=== PATIENT | female | born 1965 | race Caucasian/White ===

== ENCOUNTER 2023-11-22 15:01 | Outpatient (RCR) | payer MEDICAID, SELFPAY ==
--- NOTE | 2023-11-23 10:58 | HP.OTEVAL_ITS ---
Patient's Visit Information Visit Information Visit Information: KANCHAN VACA is a 57 year old F, referred to Occupational Therapy by S[facility], with a diagnosis of LE lymphedema. Date of Evaluation: 11/22/23 Occupational Therapist: Jazzmine Cotton, [place], CHT Subjective Subjective: This 57 year old female was seen for OT eval with dx of LE lymphedema- pt states she has struggled with LE swelling on and off for awhile. Pt states about two weeks ago she had swelling and painful- pt states she called the drMerced and put her back on the water pill. This did make a big difference in her legs. Pt states she has always had swelling but last year swelling has increased. pt states does not work but still mtg. her home. pt states she does not notice a change in her limb size when she gets up in the mornings. More swollen by the evening. pt states she thinks her compression socks are a 20-30mmHg. but bought them off of [employer], and states they are pretty old. PT would like to know what more she can do to mtg. her LE swelling. Lymphedema (Circumferential Measure) Mid-foot: right 23.cm left 23.5cm Ankle: right 25cm left 26cm Lower calf: right 30cm left 30cm Largest calf: right 44cm left 45cm Below knee: right 38cm left 38cm Lower Limb Functional Index Lower Extremity Functional Score: 30 Goals Goal: Patient will demonstrate a 20% reduction in edema by discharge: Yes Goal: Patient will demonstrate adequate knowledge of self-massage by the end of the second week.: Yes Goal: Patient will demonstrate adequate knowledge of skin care and precautions by the end of the first week.: Yes Goal: Patient will demonstrate adequate knowledge of therapeutic exercises by discharge.: Yes Goal: Patient will select an appropriate compression garment and demonstrate adequate knowledge of correct donning technique, care and wearing schedule by discharge.: Yes Goal: Patient will voice understanding of need to replace compression garment every four to six months by discharge.: Yes Rehabilitation General Assessment: Pt demo with bilateral LE swelling that with conservative methods of elevation has not been able to mtg. the swelling. Pt demo need for skilled OT services 2-4 visits to ensure pts understanding of life long mtg of Lymphedema, use of compression socks 20-30mmHg. as well as beneficial exercises and skin care. Today therapist ed. pt on need of compression socks daily, lymph stimulation exercises as well as skin care and precautions. pt demo understanding and agree to POC. Pt would like order for compression socks but states she will contact therapist where to send order ( DME provider closer to h er home) Rehabilitation Potential: Questionable Anticipated Interventions Anticipated Interventions: Education re assistive Equipment, Education re Diagnosis, Education re Life-long lymphedema Management, Education re Skin Care and Precautions, Education re Self Massage Techniques, Education re Correct Donning Tech,Care&Wearing Sched Comp Garments, Caregiver Training and Home Program Visit Plan Frequency: Every Other Week Duration: 4 Weeks General Plan: pt to return when she get her compression socks to ensure proper fit and use will ed. pt on self manual lymph drainage massage Home program TEXT: Thank you for the opportunity to evaluate your patient. For Medicare and Medicare HMO plans, please review the plan of care and approve it. It will need to be FAXED BACK to us at [phone] for Medicare purposes. Please let me know if there are questions or concerns regarding this plan of care. Physician Signature: Date:
--- NOTE | 2024-05-16 10:17 | HP.OT.NRP ---
Patient Information Patient Information: KANCHAN VACA was seen in my office for initial evaluation on 11/22/23. The following Plan of Care was established for this patient: POC Established Initial Frequency: Every Other Week Initial Duration: 4 Weeks Anticipated Interventions Anticipated Interventions: Education re assistive Equipment, Education re Diagnosis, Education re Life-long lymphedema Management, Education re Skin Care and Precautions, Education re Self Massage Techniques, Education re Correct Donning Tech,Care&Wearing Sched Comp Garments, Caregiver Training and Home Program Last Seen Last Seen: This patient was last seen in our office 11/22/23. Pertinent comments regarding their Occupational therapy will appear below: pt was seen for initial eval only- no further apts are scheduled and due to time lapse in services pt is d/c. At this point I will be discontinuing this patient from occupational therapy. I would be happy to see this patient again in the future if found appropriate by the physician. Thank you! Jazzmine Cotton, OTR/L, CHT
== END 2023-11-22 19:00 | disposition home or self-care (01) ==
LOC: OT 15:01
PROVIDERS: Referring Provider Physician Assistant Medical; Visit Provider Physician Assistant Medical
DX: R60.0 Localized edema (principal)
CPT/HCPCS: 97110; 97166; 97530